=== PATIENT | male | born 1935 | race Caucasian/White ===

== ENCOUNTER 2017-09-16 08:39 | Emergency (ER) | payer MEDICARE, OTHER ==
[2017-09-16 08:54] VITALS: BP 119/94
--- NOTE | 2017-09-16 09:04 | EDM.PDOC ---
ED HPI GENERAL MEDICAL PROBLEM - General Chief Complaint: ENT Problem Stated Complaint: SICK Time Seen by Provider: 09/16/17 08:55 Source of Information: Reports: Patient History Limitations: Reports: No Limitations - History of Present Illness INITIAL COMMENTS - FREE TEXT/NARRATIVE: This 81 yo male patient reports to the ED with right ear pain that radiates down into the right side of his neck. The patient also reports a sore throat. The patient reports his symptoms started 4-5 days ago. [facility] the right ear canal yesterday. The patient reports no known allergies. The patient's reports the patient is very hard of hearing, has had open heart surgery in 2006 and has Alzheimer's. The patient has recently been placed on a blood thinner and reports coughing up a small amount of blood tinged sputum. Onset Date: 09/11/17 Duration: Constant, Getting Worse Location: Reports: Head (right ear), Neck (right side of neck and throat) Quality: Reports: Ache, Sharp Severity: Severe Improves with: Reports: None Worsens with: Reports: None Associated Symptoms: Reports: No Other Symptoms - Related Data Allergies Allergy/AdvReac Type Severity Reaction Status Date / Time No Known Allergies Allergy Verified 11/03/16 14:28 Home Meds: Home Meds Multivitamin with Minerals [Multiple Vitamin] 1 tab PO DAILY 10/01/13 [History] Omeprazole 20 mg PO DAILY 10/01/13 [History] Sennosides/Docusate Sodium [Jaimie-Colace] 1 each PO DAILY 10/01/13 [History] Sertraline HCl [Zoloft] 100 mg PO DAILY 10/01/13 [History] Carbamide Peroxide [Ear Drops] 2 drop EARLF DAILY PRN 01/07/15 [History] Tiotropium [Spiriva HandiHaler] 1 inh INH ASDIRECTED 04/02/16 [History] Budesonide/Formoterol [Symbicort 160-4.5 MCG] 1 puff INH BID 11/03/16 [History] Gabapentin [Neurontin] 300 mg PO BID 11/03/16 [History] Memantine [Namenda] 10 mg PO DAILY 11/03/16 [History] Prednisone [IJD: Prednisone] 10 mg PO DAILY #7 tab 11/07/16 [Rx] Acetaminophen [Tylenol] 325 mg PO PRN 09/16/17 [History] Alfuzosin HCl [Alfuzosin HCl ER] 10 mg PO DAILY 09/16/17 [History] Cholecalciferol (Vitamin D3) [Vitamin D3] 1,000 units PO DAILY 09/16/17 [History ] Furosemide [Lasix] 40 mg PO DAILY 09/16/17 [History] Metoprolol Succinate [Toprol XL] 25 mg PO BID 09/16/17 [History] Warfarin [Coumadin] 2 mg PO DAILY 09/16/17 [History] Past Medical History HEENT History: Reports: Hard of Hearing Cardiovascular History: Reports: Heart Failure, High Cholesterol Respiratory History: Reports: COPD Gastrointestinal History: Reports: GI Bleed Genitourinary History: Reports: Prostate Disorder Musculoskeletal History: Reports: Back Pain, Chronic, Other (See Below) Other Musculoskeletal History: bad shoulder Neurological History: Reports: Alzheimers Disease Psychiatric History: Reports: Depression - Infectious Disease History Infectious Disease History: Reports: Chicken Pox - Past Surgical History HEENT Surgical History: Reports: Cataract Surgery Cardiovascular Surgical History: Reports: Other (See Below) Social & Family History - Family History Family Medical History: Unobtainable - Tobacco Use Smoking Status *Q: Never Smoker Years of Tobacco use: 30 Packs/Tins Daily: 1 Used Tobacco, but Quit: Yes Month Tobacco Last Used: 1999 Second Hand Smoke Exposure: Yes - Caffeine Use Caffeine Use: Reports: Coffee Caffeine Use Comment: daily - Alcohol Use Days Per Week of Alcohol Use: 0 - Recreational Drug Use Recreational Drug Use: No - Living Situation & Occupation Living situation: Reports: Extended Care Facility Occupation: Retired ED ROS ENT - Review of Systems Review Of Systems: ROS reveals no pertinent complaints other than HPI. ED EXAM, ENT - Physical Exam Exam: See Below Exam Limited By: No Limitations General Appearance: Alert, WD/WN, Moderate Distress Eye Exam: Bilateral Eye: EOMI, Normal Inspection, PERRL Ears: Normal External Exam, Normal Canal, Hearing Grossly Normal, Normal TMs, Other (bilateral hearing aids) Nose: Normal Inspection, Normal Mucousa, No Blood Mouth/Throat: Normal Inspection, Normal Gums, Normal Lips, Normal Teeth, Pharyngeal Erythema Head: Atraumatic, Normocephalic Neck: Lymphadenopathy (R), Tender Lateral Respiratory/Chest: No Respiratory Distress, Lungs Clear, Normal Breath Sounds, No Accessory Muscle Use, Chest Non-Tender Cardiovascular: Normal Peripheral Pulses, Regular Rate, Rhythm, No Edema, No Gallop, No JVD, No Murmur, No Rub GI/Abdominal: Normal Bowel Sounds, Soft, Non-Tender, No Organomegaly, No Distention, No Abnormal Bruit, No Mass (Male) Exam: Deferred Rectal (Males) Exam: Deferred Back: Normal Inspection, Full Range of Motion Extremities: Normal Inspection, Normal Range of Motion, Non-Tender, No Pedal Edema, Normal Capillary Refill Neurological: Alert, Oriented, CN II-XII Intact, Normal Cognition, Normal Gait, Normal Reflexes, No Motor/Sensory Deficits Psychiatric: Normal Affect, Normal Mood Skin: Warm, Dry, Intact, Normal Color, No Rash Lymphatic: No Adenopathy Course - Vital Signs Last Recorded V/S: Last Vital Signs Temp 36.4 C 09/16/17 08:53 Pulse 88 09/16/17 08:53 Resp 16 09/16/17 08:53 BP 119/94 H 09/16/17 08:53 Pulse Ox 92 L 09/16/17 08:53 - Orders/Labs/Meds Orders: Active Orders 24 hr Category Date Time Status CULTURE STREP A CONFIRMATION [RM] Stat Lab 09/16/17 08:55 Results STREP SCRN A RAPID W CULT CONF [RM] Stat Lab 09/16/17 08:55 Results Departure - Departure Time of Disposition: 09:29 Disposition: Home, Self-Care 01 Condition: Fair Clinical Impression: Acute pharyngitis Qualifiers: Pharyngitis/tonsillitis etiology: unspecified etiology Qualified Code(s): J02.9 - Acute pharyngitis, unspecified - Discharge Information Instructions: Pharyngitis, [id number] Forms: ED Department Discharge Care Plan Goals: The patient and were advised of the examination and lab results during the visit. The patient was discharged with a script for Augmentin (500/125) #14 to take 1 by mouth 2 times per day for 7 days. If the patient has any additional symptoms or concerns, the patient should follow-up with her primary care facility or return to the emergency department. - My Orders Last 24 Hours: My Active Orders 09/16/17 08:55 CULTURE STREP A CONFIRMATION [RM] Stat STREP SCRN A RAPID W CULT CONF [RM] Stat - Assessment/Plan Last 24 Hours: My Active Orders 09/16/17 08:55 CULTURE STREP A CONFIRMATION [RM] Stat STREP SCRN A RAPID W CULT CONF [RM] Stat
== END 2017-09-16 09:39 | disposition home or self-care (01) ==
LOC: DL.ED 08:39
DX: J02.9 Acute pharyngitis, unspecified (principal); E78.00 Pure hypercholesterolemia, unspecified; Z79.899 Other long term (current) drug therapy; Z79.01 Long term (current) use of anticoagulants
CPT/HCPCS: 87081; 87430; 99282

== ENCOUNTER 2018-01-27 17:12 | Emergency (ER) | payer MEDICARE, OTHER ==
[2018-01-27 17:42] VITALS: BP 138/81
--- NOTE | 2018-01-27 17:50 | EDM.PDOC ---
ED HPI GENERAL MEDICAL PROBLEM - General Stated Complaint: [id number] CHEST PAINS SOB Time Seen by Provider: 01/27/18 17:20 Source of Information: Reports: Patient History Limitations: Reports: No Limitations - History of Present Illness INITIAL COMMENTS - FREE TEXT/NARRATIVE: This 82 yo male patient was brought to the ED by his due to chest pain. The patient reports that he has had chest pain since about noon today, but also reports he had some chest pain this morning. The patient reports that he takes the medications that his gives him, but does not know the medications. The patient's reports that she does not know what medications he is on, but he gets them from the [place]. The patient has a history of dementia, a. fib, detention anticoagulation (Warfarin), htn, and COPD. The patient has a history of falling as well as intermittent left sided chest wall pain. The patient reports that his pain is a squeezing pain that comes and goes. The patient reports no chest pain at the time of assessment. Onset: Today Onset Date: 01/27/18 Onset Time: 12:00 Duration: Intermittent Location: Reports: Chest (left sided chest wall pain) Quality: Reports: Ache, Pressure Severity: Moderate Improves with: Reports: None Worsens with: Reports: None Associated Symptoms: Reports: Chest Pain, Cough, Shortness of Breath Left Chest Pain Score (Numeric/FACES): 8 - Related Data Allergies Allergy/AdvReac Type Severity Reaction Status Date / Time No Known Allergies Allergy Verified 11/03/16 14:28 Home Meds: Home Meds Multivitamin with Minerals [Multiple Vitamin] 1 tab PO DAILY 10/01/13 [History] Omeprazole 20 mg PO DAILY 10/01/13 [History] Sennosides/Docusate Sodium [Jaimie-Colace] 1 each PO DAILY 10/01/13 [History] Sertraline HCl [Zoloft] 100 mg PO DAILY 10/01/13 [History] Carbamide Peroxide [Ear Drops] 2 drop EARLF DAILY PRN 01/07/15 [History] Tiotropium [Spiriva HandiHaler] 1 inh INH ASDIRECTED 04/02/16 [History] Budesonide/Formoterol [Symbicort 160-4.5 MCG] 1 puff INH BID 11/03/16 [History] Gabapentin [Neurontin] 300 mg PO BID 11/03/16 [History] Memantine [Namenda] 10 mg PO DAILY 11/03/16 [History] Prednisone [IJD: Prednisone] 10 mg PO DAILY #7 tab 11/07/16 [Rx] Acetaminophen [Tylenol] 325 mg PO PRN 09/16/17 [History] Alfuzosin HCl [Alfuzosin HCl ER] 10 mg PO DAILY 09/16/17 [History] Cholecalciferol (Vitamin D3) [Vitamin D3] 1,000 units PO DAILY 09/16/17 [History ] Furosemide [Lasix] 40 mg PO DAILY 09/16/17 [History] Metoprolol Succinate [Toprol XL] 25 mg PO BID 09/16/17 [History] Warfarin [Coumadin] 2 mg PO DAILY 09/16/17 [History] Past Medical History HEENT History: Reports: Hard of Hearing Cardiovascular History: Reports: Heart Failure, High Cholesterol Respiratory History: Reports: COPD Gastrointestinal History: Reports: GI Bleed Genitourinary History: Reports: Prostate Disorder Musculoskeletal History: Reports: Back Pain, Chronic, Other (See Below) Other Musculoskeletal History: bad shoulder Neurological History: Reports: Alzheimers Disease Psychiatric History: Reports: Depression - Infectious Disease History Infectious Disease History: Reports: Chicken Pox - Past Surgical History HEENT Surgical History: Reports: Cataract Surgery Cardiovascular Surgical History: Reports: Other (See Below) Social & Family History - Family History Family Medical History: Unobtainable - Tobacco Use Smoking Status *Q: Never Smoker Years of Tobacco use: 30 Packs/Tins Daily: 1 Used Tobacco, but Quit: Yes Month/Year Tobacco Last Used: 1999 Second Hand Smoke Exposure: Yes - Caffeine Use Caffeine Use: Reports: Coffee Caffeine Use Comment: daily - Alcohol Use Days Per Week of Alcohol Use: 0 - Recreational Drug Use Recreational Drug Use: No - Living Situation & Occupation Living situation: Reports: Extended Care Facility Occupation: Retired ED ROS GENERAL - Review of Systems Review Of Systems: ROS reveals no pertinent complaints other than HPI. ED EXAM, GENERAL - Physical Exam Exam: See Below Exam Limited By: No Limitations General Appearance: Alert, WD/WN, Moderate Distress, Obese Eye Exam: Bilateral Eye: EOMI, Normal Inspection, PERRL Ears: Normal External Exam, Normal Canal, Hearing Grossly Normal, Normal TMs Nose: Normal Inspection, Normal Mucosa, No Blood Throat/Mouth: Normal Inspection, Normal Lips, Normal Teeth, Normal Gums, Normal Oropharynx, Normal Voice, No Airway Compromise Head: Atraumatic, Normocephalic Neck: Normal Inspection, Supple, Non-Tender, Full Range of Motion Respiratory/Chest: Decreased Breath Sounds, Rhonchi (diffuse) Cardiovascular: Normal Peripheral Pulses, Regular Rate, Rhythm, No Edema, No Gallop, No JVD, Systolic Murmur GI/Abdominal: Normal Bowel Sounds, Soft, Non-Tender, No Organomegaly, No Distention, No Abnormal Bruit, No Mass, Other (obese) (Male) Exam: Other Rectal (Males) Exam: Other Extremities: Normal Inspection, Normal Range of Motion, Non-Tender, Normal Capillary Refill, No Pedal Edema Neurological: Alert, Oriented, CN II-XII Intact, Normal Cognition, Normal Gait, Normal Reflexes, No Motor/Sensory Deficits Psychiatric: Normal Affect, Normal Mood Skin Exam: Warm, Dry, Intact, No Rash, Other (bruising to the left lateral chest ) Lymphatic: No Adenopathy Course - Vital Signs Last Recorded V/S: Last Vital Signs Temp 36.8 C 01/27/18 17:12 Pulse 67 01/27/18 17:12 Resp 20 01/27/18 17:12 BP 138/81 01/27/18 17:12 Pulse Ox 88 L 01/27/18 17:12 - Orders/Labs/Meds Orders: Active Orders 24 hr Category Date Time Status EKG Documentation Completion [RC] URGENT Care 01/27/18 17:14 Active Labs: Laboratory Tests 01/27/18 01/27/18 01/27/18 Range/Units 17:30 17:30 17:30 WBC 5.7 (5.0-10.0) 10^3/uL RBC 4.43 L (4.6-6.2) 10^6/uL Hgb 13.5 L (14.0-18.0) g/dL Hct 42.2 (40.0-54.0) % MCV 95.3 (80-100) fL MCH 30.5 (27.0-34.0) pg MCHC 32.0 L (33.0-35.0) g/dL Plt Count 94 L (150-450) 10^3/uL Neut % (Auto) 68.0 (42.2-75.2) % Lymph % (Auto) 16.2 L (20.5-50.1) % [place] % (Auto) 13.5 H (2-8) % Eos % (Auto) 2.1 (1.0-3.0) % Baso % (Auto) 0.2 (0.0-1.0) % PT 29.5 H (9.0-12.0) SEC INR 2.9 H (0.9-1.2) Sodium 136 (135-145) mmol/L Potassium 4.3 (3.6-5.0) mmol/L Chloride 97 L (101-111) mmol/L Carbon Dioxide 33.0 H (21.0-31.0) mmol/L Anion Gap 10.3 BUN 22 H (7-18) mg/dL Creatinine 1.3 (0.6-1.3) mg/dL Est Cr Clr Drug Dosing 39.53 mL/min Estimated GFR (MDRD) 53 BUN/Creatinine Ratio 16.92 Glucose 92 (74-105) mg/dL Calcium 9.0 (8.4-10.2) mg/dl Total Bilirubin 0.8 (0.2-1.0) mg/dL AST 34 (10-42) IU/L ALT 27 (10-60) IU/L Alkaline Phosphatase 50 (42-121) IU/L Troponin I < 0.02 (0.00-0.02) ng/ml B-Natriuretic Peptide 64 (0-100) pg/ml Total Protein 6.8 (6.7-8.2) g/dl Albumin 4.3 (3.2-5.5) g/dl Globulin 2.5 Albumin/Globulin Ratio 1.72 Departure - Departure Time of Disposition: 18:26 Disposition: Home, Self-Care 01 Condition: Fair Clinical Impression: Nonspecific chest pain Instructions: Nonspecific Chest Pain, [id number] Referrals: PCP,None [Primary Care Provider] - Care Plan Goals: The patient and his were advised of the examination, lab, EKG and x-ray results during the visit. The patient was encouraged to use his walker to avoid falls. The patient should continue on her prescribed medications as directed. If the patient has any additional symptoms or concerns, the patient should follow-up with his primary care facility or return to the emergency department. - My Orders Last 24 Hours: My Active Orders 01/27/18 17:14 EKG Documentation Completion [RC] URGENT - Assessment/Plan Last 24 Hours: My Active Orders 01/27/18 17:14 EKG Documentation Completion [RC] URGENT
[2018-01-27 17:58] LABS: CHLORIDE,CL 97 mmol/L (101-111); SODIUM,NA 136 mmol/L (135-145)
--- NOTE | 2018-01-28 19:51 | EKG ---
01/27/2018 - ANURADHA RUTH - EKG shows sinus rhythm. Left anterior fascicular block. Prolonged QT interval. [facility] /[id number]
--- NOTE | 2018-01-28 19:54 | EKG ---
01/27/2018 - ANURADHA RUTH S - TIME: 8411. EKG shows normal sinus rhythm. QT is prolonged. [facility] /[id number]
== END 2018-01-27 18:48 | disposition home or self-care (01) ==
LOC: DL.ED 17:12
DX: R07.9 Chest pain, unspecified (principal); I50.9 Heart failure, unspecified; E78.00 Pure hypercholesterolemia, unspecified; Z79.899 Other long term (current) drug therapy; Z79.01 Long term (current) use of anticoagulants; Z87.891 Personal history of nicotine dependence
CPT/HCPCS: 36415; 71045; 80053; 83880; 84484; 85025; 85610; 93005; 93010; 99285